=== PATIENT | female | born 1995 | race Caucasian/White ===

== ENCOUNTER 2018-04-04 21:11 | Emergency (ER) | payer OTHER ==
[~2018-04-04] VITALS: Ht 149.9 cm; Wt 64.5 kg
[2018-04-04] MEDS ORDERED: MOTRIN600 MG PO (22:18)
[2018-04-04] MEDS ORDERED: ATARAX,VISTARIL25 MG PO (22:18)
[2018-04-04] MEDS ORDERED: FLEXERIL5 MG PO (22:18)
[2018-04-04 22:26] VITALS: BP 121/85
== END 2018-04-04 22:27 | disposition home or self-care (01) ==
LOC: EME 21:11
DX: S50.311A Abrasion of right elbow, initial encounter (principal); S80.212A Abrasion, left knee, initial encounter; S60.221A Contusion of right hand, initial encounter; S70.12XA Contusion of left thigh, initial encounter; S20.221A Contusion of right back wall of thorax, initial encounter; Y04.2XXA Assault by strike against or bumped into by another person, initial encounter; Z87.19 Personal history of other diseases of the digestive system; Z88.5 Allergy status to narcotic agent
CPT/HCPCS: 99281; 99284; Q0177